=== PATIENT | male | born 1990 | race Caucasian/White ===

== ENCOUNTER 2017-08-07 17:03 | Emergency (ER) | payer OTHER ==
--- NOTE | 2017-08-07 17:23 | ERPHSYRPT ---
- History of Present Illness Time Seen by Provider: 08/07/17 17:13 Source: patient, family (mother) Physician History: CC: sore throat Hx: 2 day hx of severe sore throat. Feels hot and cold. No diff breathing. No abd pain. No V/D. Normal urination. Mild cough. Sees Dr Erin Mcclellan. Pain is aching and severe. Severity: severe ENT Location: throat Allergies/Adverse Reactions: No Known Drug Allergies Allergy (Verified 01/21/16 19:56) Home Medications: No Home Meds [No Home Meds] 1 ea UD 01/21/16 [History] Hx Tetanus, Diphtheria Vaccination/Date Given: Yes Hx Influenza Vaccination/Date Given: No Hx Pneumococcal Vaccination/Date Given: No - Review of Systems Constitutional: Fever, Chills, Malaise Eyes: No Symptoms Ears, Nose, & Throat: Throat Pain Respiratory: No Cough Abdominal/Gastrointestinal: No Nausea, No Vomiting, No Diarrhea Skin: No Rash Neurological: No Headache All Other Systems: Reviewed and Negative - Past Medical History Pertinent Past Medical History: No Neurological History: No Pertinent History ENT History: No Pertinent History Cardiac History: No Pertinent History Respiratory History: No Pertinent History Endocrine Medical History: No Pertinent History Musculoskeletal History: Arthritis, Fractures GI Medical History: No Pertinent History History: No Pertinent History Psycho-Social History: Depression Male Reproductive Disorders: No Pertinent History Other Medical History: I & D- pilonidal cyst. hx with depression/ bipolar - Past Surgical History Past Surgical History: Yes Neuro Surgical History: No Pertinent History Cardiac: No Pertinent History Respiratory: No Pertinent History Gastrointestinal: No Pertinent History Genitourinary: No Pertinent History Musculoskeletal: Orthopedic Surgery Male Surgical History: No Pertinent History Other Surgical History: left thumb - Social History Smoking Status: Current every day smoker How long have you smoked: 10 YEARS Exposure to second hand smoke: No Drug Use: none Patient Lives Alone: No - Nursing Vital Signs Nursing Vital Signs: Initial Vital Signs Temperature 98.7 F 08/07/17 17:09 Pulse Rate 80 08/07/17 17:09 Respiratory Rate 16 08/07/17 17:09 Blood Pressure 138/81 08/07/17 17:09 O2 Sat by Pulse Oximetry 96 08/07/17 17:09 Pain Scale Pain Intensity 8 - Physical Exam General Appearance: alert Eye Exam: bilateral eye: PERRL, EOMI Nasal Exam: normal inspection Throat Exam: dental tenderness (poor dentition), moist mucus membranes, tonsillar exudate, tonsillar swelling, No excessive drooling, No voice changes Neck Exam: normal inspection, non-tender, supple, lymphadenopathy (R), lymphadenopathy (L) Cardiovascular/Respiratory Exam: normal breath sounds, regular rate/rhythm Abdominal Exam: non-tender, soft, no organomegaly Neurologic Exam: alert, oriented x 3, cooperative, sensation nml, No motor deficits Skin Exam: warm, dry, No rash - Course Nursing assessment & vital signs reviewed: Yes Ordered Tests: Active Orders 24 hr Category Date Time Status STREP SCREEN-BETA A Stat Lab 08/07/17 17:30 Completed Medication Summary Discontinued Medications Generic Name Dose Route Start Last Admin Trade Name Victorino PRN Reason Stop Dose Admin Ibuprofen 600 mg 08/07/17 17:21 08/07/17 17:35 Motrin 600 Mg PO 08/07/17 17:22 600 mg STAT ONE Administration Ibuprofen Confirm 08/07/17 17:33 Motrin 600 Mg Administered 08/07/17 17:34 Dose 600 mg .ROUTE .[employer] ONE Lab/Rad Data: Laboratory Results 08/07/17 Range/Units 17:30 Streptococcus Screen POSITIVE (Negative) - Progress Progress Note: 08/07/17 17:43 The patient has positive strep. Rx PCN. Instr given. Counseled pt/family regarding: lab results, diagnosis, need for follow-up - Departure Time of Disposition: 17:44 Departure Disposition: Home Clinical Impression: Strep pharyngitis Condition: Stable Critical Care Time: No Referrals: ESAU MCCLELLAN [Primary Care Provider] - Instructions: Strep Throat (DC) Additional Instructions: SORE THROAT 1. If you are prescribed antibiotics, you should finish the entire prescription as directed. 2. Many sore throats are caused by viruses and antibiotics will not help. 3. Acetaminophen or Ibuprofen as directed for fever or discomfort. 4. Cool liquids may help the pain of sore throat. Rx PCN to [facility]. Prescriptions: Penicillin V Potassium 500 mg PO QID #40 tablet
[2017-08-07 17:31] VITALS: BP 138/81; PULSE 80; O2SAT 96
[2017-08-07] MEDS ORDERED: MOTRIN 600 MG ONE (17:33)
[2017-08-07] MEDS: MOTRIN 600 MG PO ONE (17:35)
== END 2017-08-07 18:15 | disposition home or self-care (01) ==
LOC: ED 17:03
DX: J02.0 Streptococcal pharyngitis (principal)
CPT/HCPCS: 87430; 99282; 99283; A9270-GY

== ENCOUNTER 2024-01-24 03:25 | Emergency (ER) | payer OTHER ==
[2024-01-24 03:41] VITALS: RESP 16; TEMP 98.4; O2SAT 99
--- NOTE | 2024-01-24 04:00 | ERPHSYRPT ---
- History of Present Illness Time Seen by Provider: 01/24/24 03:48 Source: patient Exam Limitations: no limitations Patient Subjective Stated Complaint: pt states bug bite to left leg Triage Nursing Assessment: pt ambulated into the er; pt is axo x4; c/o insect bite; pt states 7/10 pain to left upper leg; reddned area measures 12 cm x 12.5 cm; area is warm to the touch; pustule present to center of wound; no respiratory distress; vitals wnl Physician History: 33-year-old male presents to our ED for evaluation of infection to his left proximal thigh. Patient states symptoms started approximately 2 days ago. Symptoms started with a what appears to be an infected pustule. Patient states his significant other tried "popping it". The infection then got significantly worse relatively rapidly. No systemic manifestations. No inguinal pain or tenderness. Patient states he had similar infected pustules on his skin in the past that spontaneously resolved. No history of MRSA infection. Patient denies antibiotic allergies. Tetanus is up-to-date. Patient voices no other complaints or concerns at this time. Severity: moderate Modifying Factors: Improves With: nothing Associated Symptoms: denies symptoms Allergies/Adverse Reactions: No Known Drug Allergies Allergy (Verified 01/24/24 03:31) Hx Tetanus, Diphtheria Vaccination/Date Given: Yes Hx Influenza Vaccination/Date Given: Yes Hx Pneumococcal Vaccination/Date Given: No Travel Risk - International Travel Have you traveled outside of the country in past 3 weeks: No - Emerging Infectious Disease Are you exhibiting symptoms associated with any current EIDs: No - Review of Systems Constitutional: No Symptoms Eyes: No Symptoms Ears, Nose, & Throat: No Symptoms Respiratory: No Symptoms Cardiac: No Symptoms Abdominal/Gastrointestinal: No Symptoms Genitourinary Symptoms: No Symptoms Musculoskeletal: No Symptoms Skin: No Symptoms Neurological: No Symptoms Psychological: No Symptoms Endocrine: No Symptoms Hematologic/Lymphatic: No Symptoms Immunological/Allergic: No Symptoms - Past Medical History Pertinent Past Medical History: No Neurological History: No Pertinent History ENT History: No Pertinent History Cardiac History: No Pertinent History Respiratory History: No Pertinent History Endocrine Medical History: No Pertinent History Musculoskeletal History: Arthritis, Fractures GI Medical History: No Pertinent History History: No Pertinent History Psycho-Social History: Depression Male Reproductive Disorders: No Pertinent History Other Medical History: I & D- pilonidal cyst. hx with depression/ bipolar - Past Surgical History Past Surgical History: Yes Neuro Surgical History: No Pertinent History Cardiac: No Pertinent History Respiratory: No Pertinent History Gastrointestinal: No Pertinent History Genitourinary: No Pertinent History Musculoskeletal: Orthopedic Surgery Male Surgical History: No Pertinent History Other Surgical History: left thumb,left shoulder - Social History Smoking Status: Current every day smoker How long have you smoked: 10 YEARS Exposure to second hand smoke: Yes Drug Use: none Patient Lives Alone: No - Social Determinants of Health Will the patient participate in the screening: Yes Do you worry about a steady place to live?: Yes Do you have any problems with any of the following?: Other In the past 12 months,have you had to go without utilities?: Yes Transportation Issues: No Has anyone in your support network made you feel unsafe?: No Have you or anyone in your house had to go without enough: No - Nursing Vital Signs Nursing Vital Signs: Initial Vital Signs Temperature 98.4 F 01/24/24 03:31 Pulse Rate 84 01/24/24 03:31 Respiratory Rate 16 01/24/24 03:31 Blood Pressure 132/91 01/24/24 03:31 O2 Sat by Pulse Oximetry 99 01/24/24 03:31 Pain Scale Pain Intensity 7 - Physical Exam General Appearance: no apparent distress, alert Eye Exam: PERRL/EOMI, eyes nml inspection Ears, Nose, Throat Exam: normal ENT inspection, moist mucous membranes Neck Exam: normal inspection, full range of motion Respiratory Exam: normal breath sounds, lungs clear, airway intact, No respiratory distress Cardiovascular Exam: regular rate/rhythm, normal heart sounds, normal peripheral pulses Gastrointestinal/Abdomen Exam: soft, normal bowel sounds, No tenderness, No mass Back Exam: normal inspection, normal range of motion, No CVA tenderness, No vertebral tenderness Extremity Exam: normal inspection, normal range of motion, pelvis stable, tenderness (Some tenderness at the site of the cellulitis. No fluctuance), other (Area of cellulitis measuring 12 x 12 cm. The area at the center is indurated and measures 4 x 4 cm. At the very center there is a small necrotic pustular. This Was deroofed. No purulent material expressed. Small amount of serosanguineous material expressed less than 1 cc.) Neurologic Exam: alert, oriented x 3, cooperative, normal mood/affect, nml cerebellar function, nml station & gait, sensation nml, No motor deficits Skin Exam: normal color, warm, dry, No rash Lymphatic Exam: No adenopathy SpO2 Interpretation: normal SpO2: 99 O2 Delivery: Room Air - Course Nursing assessment & vital signs reviewed: Yes Ordered Tests: Active Orders 24 hr Category Date Time Status ACO SDOH Referral ONCE Cons 01/24/24 03:41 Active Medication Summary Discontinued Medications Generic Name Dose Route Start Last Admin Trade Name Victorino PRN Reason Stop Dose Admin Ceftriaxone Sodium 1,000 mg 01/24/24 04:03 01/24/24 04:07 Ceftriaxone Sodium 1000 Mg Inj Vial IM 01/24/24 04:04 1,000 mg STAT ONE Administration Ceftriaxone Sodium Confirm 01/24/24 04:06 Ceftriaxone Sodium 1000 Mg Inj Vial Administered 01/24/24 04:07 Dose 1,000 mg .ROUTE .STK-MED ONE Clindamycin Phosphate 600 mg 01/24/24 04:00 01/24/24 04:07 Clindamycin Phosphate 600 Mg/4 Ml Vial IV 01/24/24 04:01 Not Given STAT ONE Clindamycin Phosphate 600 mg 01/24/24 04:06 01/24/24 04:08 Clindamycin Phosphate 600 Mg/4 Ml Vial IM 01/24/24 04:07 600 mg STAT ONE Administration Clindamycin Phosphate Confirm 01/24/24 04:06 Clindamycin Phosphate 600 Mg/4 Ml Vial Administered 01/24/24 04:07 Dose 600 mg .ROUTE .STK-MED ONE Lidocaine HCl Confirm 01/24/24 04:06 Lidocaine Hcl 1% 20 Ml Mdv 20 Ml Ml Administered 01/24/24 04:07 Dose 3 ml .ROUTE .STK-MED ONE - Progress Progress: improved Progress Note: 33-year-old male presents to our ED for evaluation of cellulitis to his left thigh. There is an area of induration there as well. Physical exam negative for lymphadenopathy. No lymphangitis. The center of the wound had a small necrotic area of tissue measuring approximately 2 mm located at the very center of the infection. Using an 11 blade this was deroofed. No purulent drainage obtained. Small amount of blood. The area was cleaned with alcohol and dressed with a Band-Aid. There was no area of fluctuance for drainage. The area immediately adjacent to the pustule where the infection initiated was indurated. The area of cellulitis spread over an area of 12 x 12 cm. No circumferential involvement. The involved extremity was neurovascular tact distally compartments are soft cap refill less than 2 seconds. Patient refused intravenous antibiotics. He was only agreeable to IM antibiotics. Patient declined pain medication. We discussed the need for admission. Patient declined. Patient understands that he would receive IV antibiotics during his admission for potentially quicker resolution and monitoring. He declined but agreed to return to our ED tomorrow in 24 hours for reassessment. A prescription for Keflex and clindamycin was forwarded to patient's pharmacy. Patient significant other at the bedside stated that they are homeless. However they do have the means to pay for their antibiotics. Patient voiced no other concerns patient was discharged home with an agreement to return for reassessment. ACO referral made secondary to his homeless status. Portions of this note were created with voice recognition technology. There may be grammatical, spelling, punctuation or sound alike errors Complexity problem addressed is moderate acute complicated. No critical care time. Complexity of data reviewed is low. No specialized testing ordered. Diagnosis made based on history and physical exam. Risk of complication and or risk of morbidity/mortality patient management is moderate. A prescription for clindamycin and Keflex forwarded to patient's pharmacy. Vital stable. Time spent to discharge patient is approximately 15 minutes. Plan of care established for shared decision making. No social determinants of health present impede follow-up. Portions of this note were created with voice recognition technology. There may be grammatical, spelling, punctuation or sound alike errors 01/24/24 04:33 01/24/24 04:38 Counseled pt/family regarding: diagnosis, need for follow-up - Departure Departure Disposition: Home Clinical Impression: Cellulitis, Induration of skin Condition: Stable Critical Care Time: No Referrals: DOCTOR,NO FAMILY [Primary Care Provider] - Follow up/PCP as directed Instructions: Cellulitis (Skin Infection), Adult ED Additional Instructions: Please return tomorrow morning 01/25/24 for a check up of your infection Discharge/Care Plan SHANETONNY EASTON was seen on 01/24/24 in the Emergency Room. The patient was counseled regarding Diagnosis,Lab results, Imaging studies, need for follow up and when to return to the Emergency Room. Prescriptions given: Discharge Note I have spoken with the patient and/or caregivers. I have explained the patient's condition, diagnosis and treatment plan based on the information available to me at this time. I have answered the patient's and/or caregiver's questions and addressed any concerns. The patient and/or caregivers have as good understanding of the patient's diagnosis, condition and treatment plan as can be expected at this point. The vital signs have been stable. The patient's condition is stable and appropriate for discharge from the emergency department. The patient will pursue further outpatient evaluation with the primary care physician or other designated or consulting physician as outlined in the discharge instructions. The patient and/or caregivers are agreeable to this plan of care and follow-up instructions have been explained in detail. The patient and/or caregivers have received these instruction. The patient/and or caregivers are aware that any significant change in condition or worsening of symptoms should prompt an immediate return to this or the closest emergency department or call 911. Prescriptions: Clindamycin HCl 150 mg [Cleocin 150 mg Capsule] 2 cap PO QID 7 Days #56 cap Cephalexin Mh 500 mg [Keflex 500 mg] 500 mg PO TID 7 Days #21 cap
[2024-01-24] MEDS ORDERED: Rocephin 1000 MG INJ ONE (04:06)
[2024-01-24] MEDS ORDERED: XYLOCAINE 1% HCL 20 ML MDV ONE (04:06)
[2024-01-24] MEDS ORDERED: Cleocin Phosphate IV 600 MG/4 ML ONE (04:06)
[2024-01-24] MEDS: Rocephin 1000 MG INJ IM ONE (04:07)
[2024-01-24] MEDS: Cleocin Phosphate IV 600 MG/4 ML IV ONE (04:07)
[2024-01-24] MEDS: Cleocin Phosphate IV 600 MG/4 ML IM ONE (04:08)
[2024-01-24 04:24] VITALS: BP 129/91; PULSE 88
== END 2024-01-24 04:28 | disposition home or self-care (01) ==
LOC: ED 03:25
DX: L03.116 Cellulitis of left lower limb (principal); R23.4 Changes in skin texture; Z72.0 Tobacco use; Z59.12 Inadequate housing utilities; Z59.819 Housing instability, housed unspecified
CPT/HCPCS: 96372; 99283; J0696

== ENCOUNTER 2024-01-24 22:56 | Observation (INO) | payer OTHER ==
--- NOTE | 2024-01-25 00:05 | ERPHSYRPT ---
- History of Present Illness Time Seen by Provider: 01/24/24 23:07 Source: patient Exam Limitations: no limitations Patient Subjective Stated Complaint: pt states that leg is worse than yesterday Triage Nursing Assessment: pt ambulated into the er; pt is axo x4; c/o insect bite; pt states 10/10 pain to left upper left; area is dark red, hot to the touch, drainage present; no respiratory distress present; vitals Physician History: 33-year-old male presented to the ER with complaint of left lower anterior thigh swelling and pain with discharge. Patient reports he possibly had insect bite 4 days ago, was evaluated yesterday in the ER, got a shot of Rocephin and clindamycin, was recommended admission but patient wanted to leave. He has not picked up his home prescription, now presented with increasing pain and swelling especially in the center with some discharge. Reports subjective feeling of fever and chills. No history of MRSA. Allergies/Adverse Reactions: No Known Drug Allergies Allergy (Verified 01/24/24 23:09) Hx Tetanus, Diphtheria Vaccination/Date Given: Yes Hx Influenza Vaccination/Date Given: Yes Hx Pneumococcal Vaccination/Date Given: No Immunizations Up to Date: No Travel Risk - International Travel Have you traveled outside of the country in past 3 weeks: No - Emerging Infectious Disease Are you exhibiting symptoms associated with any current EIDs: No - Review of Systems Constitutional: Fever, Chills Eyes: No Symptoms Ears, Nose, & Throat: No Symptoms Respiratory: No Symptoms Cardiac: No Symptoms Abdominal/Gastrointestinal: No Symptoms Genitourinary Symptoms: No Symptoms Skin: Cellulitis, Skin Lesions Neurological: No Symptoms Endocrine: No Symptoms Hematologic/Lymphatic: No Symptoms - Past Medical History Pertinent Past Medical History: No Neurological History: No Pertinent History ENT History: No Pertinent History Cardiac History: No Pertinent History Respiratory History: No Pertinent History Endocrine Medical History: No Pertinent History Musculoskeletal History: Arthritis, Fractures GI Medical History: No Pertinent History History: No Pertinent History Psycho-Social History: Depression Male Reproductive Disorders: No Pertinent History Other Medical History: I & D- pilonidal cyst. hx with depression/ bipolar - Past Surgical History Past Surgical History: Yes Neuro Surgical History: No Pertinent History Cardiac: No Pertinent History Respiratory: No Pertinent History Gastrointestinal: No Pertinent History Genitourinary: No Pertinent History Musculoskeletal: Orthopedic Surgery Male Surgical History: No Pertinent History Other Surgical History: left thumb,left shoulder - Social History Smoking Status: Current every day smoker How long have you smoked: 10 YEARS Exposure to second hand smoke: Yes Drug Use: none Patient Lives Alone: No - Social Determinants of Health Will the patient participate in the screening: Yes Do you worry about a steady place to live?: Yes Do you have any problems with any of the following?: No known problems In the past 12 months,have you had to go without utilities?: Yes Transportation Issues: No Has anyone in your support network made you feel unsafe?: No Have you or anyone in your house had to go without enough: No - Nursing Vital Signs Nursing Vital Signs: Initial Vital Signs Temperature 98.8 F 01/24/24 23:10 Pulse Rate 97 H 01/24/24 23:10 Respiratory Rate 18 01/24/24 23:10 Blood Pressure 117/90 01/24/24 23:10 O2 Sat by Pulse Oximetry 98 01/24/24 23:10 Pain Scale Pain Intensity 10 - Physical Exam General Appearance: no apparent distress Eye Exam: PERRL/EOMI Neck Exam: normal inspection, full range of motion Respiratory Exam: normal breath sounds, lungs clear Cardiovascular Exam: regular rate/rhythm, normal heart sounds Gastrointestinal/Abdomen Exam: soft Back Exam: normal inspection, normal range of motion Extremity Exam: inflammation (Left lower anterior thigh 10 x 10 cm area of swelling with central area of blackening and yellow-green discharge. Remarkable tenderness around.), swelling, tenderness Neurologic Exam: alert, oriented x 3, cooperative Skin Exam: normal color SpO2 Interpretation: normal SpO2: 98 O2 Delivery: Room Air Ordered Tests: Medication Summary Discontinued Medications Generic Name Dose Route Start Last Admin Trade Name Freq PRN Reason Stop Dose Admin Acetaminophen 1,000 mg 01/25/24 03:14 Acetaminophen 500 Mg Tablet PO 02/24/24 03:13 Q4H PRN PRN FEVER Hydrocodone Bitart/Acetaminophen 1 tab 01/26/24 12:29 Hydrocodone/Apap 5/325 1 Tab Tablet PO 01/31/24 12:28 Q4HPRN PRN PAIN Albuterol Sulfate Confirm 01/26/24 11:02 Proair Hfa Mdi 8.5 Gm Administered 01/26/24 11:03 Dose 8.5 gm IH .STK-MED ONE Albuterol/Ipratropium 3 ml 01/25/24 13:00 01/26/24 08:13 Ipratropium/Albuterol Sulfate 3 Ml Ampul.Neb IH 02/24/24 12:59 Not Given Q6HRT BONILLA Bupivacaine HCl Confirm 01/26/24 09:31 Bupivacaine Hcl 2.5 Mg/Ml 10 Ml Administered 01/26/24 09:32 Dose 10 ml .ROUTE .STK-MED ONE Daptomycin 500 mg 01/27/24 10:00 Daptomycin 500 Mg IV 02/26/24 09:59 DAILY BONILLA Device 1 01/26/24 13:30 01/26/24 15:44 Therapuetic Drug Level Monitor Each IJ 01/26/24 13:31 Not Given 1XONLY ONE Fentanyl Citrate Confirm 01/26/24 10:38 Fentanyl Citrate 100 Mcg/2 Ml* Vial Administered 01/26/24 10:39 Dose 100 mcg .ROUTE .STK-MED ONE Hydromorphone HCl Confirm 01/26/24 11:07 Hydromorphone 2mg Injection Administered 01/26/24 11:08 Dose 2 mg .ROUTE .STK-MED ONE Piperacillin Sod/Tazobactam 100 mls @ 200 mls/hr 01/25/24 00:05 01/25/24 00:20 Sod 3.375 gm/ Sodium Chloride IV 01/25/24 00:34 200 mls/hr STAT ONE Administration Clindamycin HCl/Dextrose 900 mg in 50 mls @ 100 mls/hr 01/25/24 00:05 01/25/24 00:21 Clindamycin-D5w 900 Mg/50 Ml IV 01/25/24 00:34 100 mls/hr STAT STA 100 mls/hr Administration Sodium Chloride Confirm 01/25/24 00:20 Sodium Chloride 100ml Mini-Bag Plus Administered 01/25/24 00:21 Dose 100 mls @ ud IV .STK-MED ONE Clindamycin HCl/Dextrose Confirm 01/25/24 00:20 Clindamycin-D5w 900 Mg/50 Ml Administered 01/25/24 00:21 Dose 900 mg in 50 mls @ ud IV .STK-MED ONE Vancomycin HCl 1 gm in 200 mls @ 125 mls/hr 01/25/24 03:15 01/25/24 04:47 Vancomycin 1 Gram/200 Ml Bag IV 02/24/24 03:14 125 mls/hr Q12H BONILLA Administration Piperacillin Sod/Tazobactam 100 mls @ 200 mls/hr 01/25/24 06:00 01/26/24 12:40 Sod 3.375 gm/ Sodium Chloride IV 01/28/24 05:59 200 mls/hr Q6HT BONILLA Administration Sodium Chloride 1,000 mls @ 125 mls/hr 01/25/24 01:20 01/26/24 12:53 Sodium Chloride 0.9% 1000 Ml IV 02/24/24 01:19 Not Given .Q8H BONILLA Vancomycin HCl 1.5 gm in 300 mls @ 200 mls/hr 01/25/24 14:00 01/26/24 15:46 Vancomycin 1.5 Gram/300 Ml Bag IV 02/24/24 13:59 Not Given Q8HT BONILLA Sodium Chloride Confirm 01/25/24 03:46 Sodium Chloride 0.9% 1000 Ml Administered 01/25/24 03:47 Dose 1,000 mls @ ud .ROUTE .STK-MED ONE Vancomycin HCl Confirm 01/25/24 04:45 Vancomycin 1 Gram/200 Ml Bag Administered 01/25/24 04:46 Dose 1 gm in 200 mls @ ud IV .STK-MED ONE Sodium Chloride Confirm 01/25/24 06:15 Sodium Chloride 100ml Mini-Bag Plus Administered 01/25/24 06:16 Dose 100 mls @ ud IV .STK-MED ONE Lactated Ringer's 1,000 mls @ 50 mls/hr 01/26/24 13:00 01/26/24 13:05 Lactated Ringers IV 02/25/24 12:59 Not Given .Q20H BONILLA Daptomycin 600 mg/ Sodium 12 mls @ 5 mls/min 01/26/24 16:00 Chloride IV 02/25/24 15:59 Q24H BONILLA Ibuprofen 800 mg 01/25/24 07:04 01/25/24 11:19 Ibuprofen 400 Mg Tablet PO 02/24/24 07:03 800 mg TIDP PRN Administration MILD TO MODERATE PAIN Ketorolac Tromethamine Confirm 01/25/24 00:43 Ketorolac Tromethamine 30 Mg/Ml Inj Administered 01/25/24 00:44 Dose 30 mg .ROUTE .STK-MED ONE Ketorolac Tromethamine Confirm 01/26/24 11:13 Ketorolac Tromethamine 30 Mg/Ml Inj Administered 01/26/24 11:14 Dose 30 mg .ROUTE .STK-MED ONE Lidocaine HCl Confirm 01/26/24 10:51 Lidocaine - Mpf 2% 5 Ml Vial Administered 01/26/24 10:52 Dose 5 ml .ROUTE .STK-MED ONE Midazolam HCl Confirm 01/26/24 10:38 Midazolam Hcl 2 Mg/2 Ml Vial Administered 01/26/24 10:39 Dose 2 mg .ROUTE .STK-MED ONE Morphine Sulfate 4 mg 01/25/24 01:20 Morphine Sulfate 4 Mg/Ml Injection IV 01/30/24 01:19 Q6H PRN PRN PAIN Nicotine 21 mg 01/25/24 18:15 01/25/24 18:09 Nicotine 21 Mg/Patch Patch TOP 02/24/24 18:14 21 mg Q24H BONILLA Administration Nicotine 21 mg 01/26/24 15:00 01/26/24 15:02 Nicotine 21 Mg/Patch Patch TOP 02/25/24 14:59 21 mg Q24H BONILLA Administration Ondansetron HCl 4 mg 01/25/24 01:20 Ondansetron Hcl 4 Mg/2 Ml Vial IV 02/24/24 01:19 Q6H PRN PRN NAUSEA/VOMITING Piperacillin Sod/Tazobactam Sod Confirm 01/25/24 00:20 Piperacillin/Tazobactam Sodium 3.375 Gm Vial Administered 01/25/24 00:21 Dose 3.375 gm IV .STK-MED ONE Piperacillin Sod/Tazobactam Sod Confirm 01/25/24 06:14 Piperacillin/Tazobactam Sodium 3.375 Gm Vial Administered 01/25/24 06:15 Dose 3.375 gm IV .STK-MED ONE Propofol Confirm 01/26/24 10:38 Propofol 10 Mg/Ml 20ml Vial Administered 01/26/24 10:39 Dose 200 mg IV .STK-MED ONE Succinylcholine Chloride Confirm 01/26/24 10:37 Succinylcholine Chloride 200mg/10 Ml Vial Administered 01/26/24 10:38 Dose 200 mg .ROUTE .STK-MED ONE Sugammadex Sodium Confirm 01/26/24 11:08 Sugammadex Sodium 200 Mg/2 Ml Vial Administered 01/26/24 11:09 Dose 200 mg IV .STK-MED ONE Lab/Rad Data: Laboratory Result Diagrams 01/25/24 00:20 01/25/24 00:20 Laboratory Results 01/25/24 01/25/24 01/25/24 Range/Units 00:20 00:20 00:20 WBC 8.5 (4.23-9.07) x10^3/uL RBC 4.49 L (4.63-6.08) x10^6/uL Hgb 13.5 L (13.7-17.5) g/dL Hct 40.7 (40.1-51.0) % MCV 90.6 (79.0-92.2) fL MCH 30.1 (25.7-32.2) pg MCHC 33.2 (32.3-36.5) g/dL RDW 14.6 H (11.6-14.4) % Plt Count 209 (163-337) x10^3/uL MPV 9.6 (9.4-12.4) fL Gran % 72.5 H (34.0-67.9) % Immature Gran % (Auto) 0.2 (0.001-0.429) % Nucleat RBC Rel Count 0.0 (0.00-0.2) % Eos # (Auto) 0.19 (0.04-0.54) x10^3/uL Immature Gran # (Auto) 0.02 (0.001-0.031) x10^3u/L Absolute Lymphs (auto) 1.49 (1.32-3.57) x10^3/uL Absolute Monos (auto) 0.59 (0.30-0.82) x10^3/uL Absolute Nucleated RBC 0.00 (0.00-0.012) x10^3u/L Lymphocytes % 17.6 L (21.8-53.1) % Monocytes % 7.0 (5.3-12.2) % Eosinophils % 2.2 (0.8-7.0) % Basophils % 0.5 (0.2-1.2) % Absolute Granulocytes 6.14 H (1.78-5.38) x10^3/uL Basophils # 0.04 (0.01-0.08) x10^3/uL Sodium 137 (135-145) mmol/L Potassium 3.6 (3.5-5.1) mmol/L Chloride 103 (98-107) mmol/L Carbon Dioxide 27 (22-30) mmol/L Anion Gap 10.6 (5-15) MEQ/L BUN 15 (9-20) mg/dL Creatinine 0.73 (0.66-1.25) mg/dL Estimated GFR 124.7 ML/MIN Glucose 113 H (74-106) mg/dL Lactic Acid (0.4-2.0) Calcium 8.9 (8.4-10.2) mg/dL Total Bilirubin 0.40 (0.2-1.3) mg/dL AST 38 (17-59) U/L ALT 30 (0-50) U/L Alkaline Phosphatase 65 (38-126) U/L Creatine Kinase 532 H (55-170) U/L Serum Total Protein 7.2 (6.3-8.2) g/dL Albumin 4.0 (3.5-5.0) g/dL 01/25/24 Range/Units 00:05 WBC (4.23-9.07) x10^3/uL RBC (4.63-6.08) x10^6/uL Hgb (13.7-17.5) g/dL Hct (40.1-51.0) % MCV (79.0-92.2) fL MCH (25.7-32.2) pg MCHC (32.3-36.5) g/dL RDW (11.6-14.4) % Plt Count (163-337) x10^3/uL MPV (9.4-12.4) fL Gran % (34.0-67.9) % Immature Gran % (Auto) (0.001-0.429) % Nucleat RBC Rel Count (0.00-0.2) % Eos # (Auto) (0.04-0.54) x10^3/uL Immature Gran # (Auto) (0.001-0.031) x10^3u/L Absolute Lymphs (auto) (1.32-3.57) x10^3/uL Absolute Monos (auto) (0.30-0.82) x10^3/uL Absolute Nucleated RBC (0.00-0.012) x10^3u/L Lymphocytes % (21.8-53.1) % Monocytes % (5.3-12.2) % Eosinophils % (0.8-7.0) % Basophils % (0.2-1.2) % Absolute Granulocytes (1.78-5.38) x10^3/uL Basophils # (0.01-0.08) x10^3/uL Sodium (135-145) mmol/L Potassium (3.5-5.1) mmol/L Chloride (98-107) mmol/L Carbon Dioxide (22-30) mmol/L Anion Gap (5-15) MEQ/L BUN (9-20) mg/dL Creatinine (0.66-1.25) mg/dL Estimated GFR ML/MIN Glucose (74-106) mg/dL Lactic Acid 0.8 (0.4-2.0) Calcium (8.4-10.2) mg/dL Total Bilirubin (0.2-1.3) mg/dL AST (17-59) U/L ALT (0-50) U/L Alkaline Phosphatase (38-126) U/L Creatine Kinase (55-170) U/L Serum Total Protein (6.3-8.2) g/dL Albumin (3.5-5.0) g/dL - Progress Progress: unchanged Progress Note: 01/25/24 01:12 Patient has left lower anterior insect bite with cellulitis and draining abscess. He started on IV antibiotics Zosyn and clindamycin. Workup showed normal white count, fairly unremarkable chemistries and CK of 530s. Normal lactate. I do not think patient has necrotizing fasciitis but more of a boil/abscess. I believe patient needs I&D under anesthesia. Discussed with Dr. Dillard, reviewed history, workup and agreed with admission. I have discussed the results of workup and plan of admission with patient and family who understand and agree. Patient admission is done during [facility] downtime and this documentation is done later. Discussed with : Carol Will see patient in: hospital (observation) Counseled pt/family regarding: lab results, diagnosis Medical Desision Making - Independent Historian Additional History obtained from: Spouse - Discussion of managment Care discussed with:: hospitalist Reviewed:: Test results Agreed on:: Treatment plan, place in obs Will see patient: in hospital - Diagnostic Testing Diagnostic test were ordered, analyzed, and reviewed by me: Yes - Risk of complications The pt has a mod risk of morbidity or mortality based on: Need for prescription drug management, Need for minor surgical intervention in patient with know risk factors The pt has a high risk of morbidity or mortality based on: Decision regarding hospitilization or escalation of hosp level of care - Departure Departure Disposition: Observation Clinical Impression: Thigh abscess, Cellulitis Condition: Stable Critical Care Time: No
[2024-01-25] MEDS: PIPERACILLIN/TAZOBACTAM 3.375 GM in Sodium Chloride 100ML MINI-BAG PLUS 100 ML IV ONE (00:20)
[2024-01-25] MEDS ORDERED: Sodium Chloride 100ML MINI-BAG PLUS 100 ML IV ONE ×2 (00:20→06:15)
[2024-01-25] MEDS ORDERED: CLINDAMYCIN-D5W 900 MG/50 ML*** 900 MG/50 ML BAG IV ONE (00:20)
[2024-01-25] MEDS ORDERED: PIPERACILLIN/TAZOBACTAM IV ONE ×2 (00:20→06:14)
[2024-01-25] MEDS: CLINDAMYCIN-D5W 900 MG/50 ML*** 900 MG/50 ML BAG IV STA (00:21)
[2024-01-25 00:27] LABS: Absolute Neutrophil Ct (ANC) 6.14 x10^3/uL (1.78-5.38); BASOPHIL % 0.5 % (0.2-1.2); Basophil (Absolute #) 0.04 x10^3/uL (0.01-0.08); Eosinophil % 2.2 % (0.8-7.0); Eosinophil (Absolute #) 0.19 x10^3/uL (0.04-0.54); Hematocrit 40.7 % (40.1-51.0); Hemoglobin 13.5 g/dL (13.7-17.5); IMMATURE GRAN # 0.02 x10^3u/L (0.001-0.031); IMMATURE GRAN % 0.2 % (0.001-0.429); Lymphocyte (Absolute #) 1.49 x10^3/uL (1.32-3.57); Lymphocytes % 17.6 % (21.8-53.1); Mean Cell Volume 90.6 fL (79.0-92.2); Mean Corpuscular Hemoglobin 30.1 pg (25.7-32.2); Mean Corpuscular Hgb Concent. 33.2 g/dL (32.3-36.5); Mean Platelet Volume 9.6 fL (9.4-12.4); Monocyte (Absolute #) 0.59 x10^3/uL (0.30-0.82); Neutrophil % 72.5 % (34.0-67.9); Platelet Count 209 x10^3/uL (163-337); Red Blood Count 4.49 x10^6/uL (4.63-6.08); Red Cell Distribution Width 14.6 % (11.6-14.4); White Blood Count 8.5 x10^3/uL (4.23-9.07)
[2024-01-25] MEDS ORDERED: TORAdol 30 mg Injection ONE (00:43)
[2024-01-25] MEDS ORDERED: MORPHINE SULFATE 4 MG INJ IV PRN (01:20)
[2024-01-25] MEDS ORDERED: Zofran 4 MG/2 ML VIAL IV PRN (01:20)
[2024-01-25] MEDS ORDERED: TYLENOL EXTRA STRENGTH 500 MG PO PRN (03:14)
[2024-01-25] MEDS ORDERED: MOTRIN 600 MG PO PRN (03:15)
--- NOTE | 2024-01-25 03:25 | PCM.HP ---
History of Present Illness - Chief Complaint Date: 01/25/24 History of Present Illness: Mr. Miller is a 33 year-old gentleman with active tobacco abuse and dependence and prior polysubstance abuse (IV cocaine and methaphetamines) who presents with cellulitis. He admits to a spider bite on his left thigh three days ago which led to a pimple and then a boil with surrounding erythema. He came to [facility] ED last night but left AMA with prescriptions to fill which he was not able to fill. Upon arrival today, his laboratory data was unrevealing, and his left thigh has extensive erythema and induration with a large boil in the center which has been drained several times. He currently denies any fevers, chills, nausea, vomiting, diarrhea, syncope, presyncope, visual changes, orthopnea, PND, odynophagia, dysphagia, chest pain, shortness of breath, belly pain, dysuria, hematuria, melena, hematochezia, or neurological changes. All other systems were reviewed and were negative. - Review of Systems Constitutional: No Fever, No Chills Eyes: No Symptoms Ears, Nose, & Throat: No Symptoms Respiratory: No Cough, No Short Of Breath Cardiac: No Chest Pain, No Edema, No Syncope Abdominal/Gastrointestinal: No Abdominal Pain, No Nausea, No Vomiting, No Diarrhea Genitourinary Symptoms: No Dysuria Musculoskeletal: No Back Pain, No Neck Pain Skin: Cellulitis, Rash Neurological: No Dizziness, No Focal Weakness, No Sensory Changes Psychological: No Symptoms Endocrine: No Symptoms Hematologic/Lymphatic: No Symptoms Immunological/Allergic: No Symptoms Medications & Allergies Home Medications: Home Medication List Cephalexin Mh 500 mg [Keflex 500 mg] 500 mg PO TID 7 Days #21 cap 01/24/24 [Rx Confirmed 01/24/24] Clindamycin HCl 150 mg [Cleocin 150 mg Capsule] 2 cap PO QID 7 Days #56 cap 01/24/24 [Rx Confirmed 01/24/24] Allergies/Adverse Reactions: Allergies Allergy/AdvReac Type Severity Reaction Status Date / Time No Known Drug Allergies Allergy Verified 01/24/24 23:09 - Past Medical History Past Medical History: No Neurological History: No Pertinent History ENT History: No Pertinent History Cardiac History: No Pertinent History Respiratory History: No Pertinent History Endocrine Medical History: No Pertinent History Musculoskelatal History: Arthritis, Fractures GI Medical History: No Pertinent History History: No Pertinent History Pyscho-Social History: Depression Male Reproductive Disorders: No Pertinent History Comment: I & D- pilonidal cyst. hx with depression/ bipolar - Past Surgical History Past Surgical History: Yes Neuro Surgical History: No Pertinent History Cardiac History: No Pertinent History Respiratory Surgery: No Pertinent History GI Surgical History: No Pertinent History Genitourinary Surgical Hx: No Pertinent History Musculskeletal Surgical Hx: Orthopedic Surgery Male Surgical History: No Pertinent History Other Surgical History: left thumb,left shoulder Significant Family History: no pertinent family hx - Social History Smoking Status: Current every day smoker How long have you smoked: 10 YEARS Exposure to second hand smoke: Yes Alcohol: None Drug Use: none - Social Determinants of Health Will the patient participate in the screening: Yes Do you worry about a steady place to live?: Yes Do you have any problems with any of the following?: No known problems In the past 12 months,have you had to go without utilities?: Yes Have you or anyone in your house had to go without enough: No Transportation Issues: No Has anyone in your support network made you feel unsafe?: No - Physical Exam Vital Signs: Vital Signs - 24 hr Temp Pulse Resp BP BP Pulse Ox 01/25/24 00:30 98 H 126/77 98 01/25/24 00:12 98 01/25/24 00:00 96 H 121/85 98 01/24/24 23:30 97 H 119/80 98 01/24/24 23:10 98.8 F 95 H 18 117/90 117/90 99 General Appearance: no apparent distress, alert Neurologic Exam: alert, oriented x 3, cooperative, normal mood/affect, nml cerebellar function, nml station & gait, sensation nml, No motor deficits Eye Exam: PERRL/EOMI, eyes nml inspection Ears, Nose, Throat Exam: normal ENT inspection, TMs normal, pharynx normal, moist mucous membranes Neck Exam: normal inspection, non-tender, supple, full range of motion Respiratory Exam: normal breath sounds, lungs clear, No respiratory distress Cardiovascular Exam: regular rate/rhythm, normal heart sounds, normal peripheral pulses Gastrointestinal/Abdomen Exam: soft, normal bowel sounds, No tenderness, No mass Back Exam: normal inspection, normal range of motion, No CVA tenderness, No vertebral tenderness Extremity Exam: normal inspection, normal range of motion, pelvis stable Skin Exam: other (ERYTHEMA, INDURATION, DRAINING BOIL ON LEFT THIGH) Lymphatic Exam: No adenopathy Results - Labs Lab/Micro Results: Lab Results-Last 24 Hours 01/25/24 01/25/24 Range/Units 00:05 00:20 WBC 8.5 (4.23-9.07) x10^3/uL RBC 4.49 L (4.63-6.08) x10^6/uL Hgb 13.5 L (13.7-17.5) g/dL Hct 40.7 (40.1-51.0) % MCV 90.6 (79.0-92.2) fL MCH 30.1 (25.7-32.2) pg MCHC 33.2 (32.3-36.5) g/dL RDW 14.6 H (11.6-14.4) % Plt Count 209 (163-337) x10^3/uL MPV 9.6 (9.4-12.4) fL Gran % 72.5 H (34.0-67.9) % Immature Gran % (Auto) 0.2 (0.001-0.429) % Nucleat RBC Rel Count 0.0 (0.00-0.2) % Eos # (Auto) 0.19 (0.04-0.54) x10^3/uL Immature Gran # (Auto) 0.02 (0.001-0.031) x10^3u/L Absolute Lymphs (auto) 1.49 (1.32-3.57) x10^3/uL Absolute Monos (auto) 0.59 (0.30-0.82) x10^3/uL Absolute Nucleated RBC 0.00 (0.00-0.012) x10^3u/L Lymphocytes % 17.6 L (21.8-53.1) % Monocytes % 7.0 (5.3-12.2) % Eosinophils % 2.2 (0.8-7.0) % Basophils % 0.5 (0.2-1.2) % Absolute Granulocytes 6.14 H (1.78-5.38) x10^3/uL Basophils # 0.04 (0.01-0.08) x10^3/uL Lactic Acid 0.8 (0.4-2.0) - Radiology Impressions Radiology Exams & Impressions: Radiology Procedures Category Date Time Status LOWER EXTREMITY WO CONTRAST [CT] Urgent Exams 01/25/24 03:13 Ordered Assessment/Plan (1) Cellulitis Current Visit: No Status: Acute Assessment & Plan: ANTIBIOTICS AND STEROIDS Vancomycin Zosyn ASSESSMENT 1. Cellulitis 2. Draining Wound 3. Polysubstance Abuse Present and Past PLAN 1. Start Vancomycin and Zosyn 2. Wound and Blood cultures pending 3. CT Scan Non-Contrasted of Left Lower Extremity 4. Wound care consultation 5. Smoking cessation counseled SCDs The entirety of this encounter was done via telemedicine with audio and visual. Consent was obtained for a telemedicine encounter. Janes Dillard MD Pulmonary and Critical Care Medicine Code(s): L03.90 - CELLULITIS, UNSPECIFIED Telemedicine Encounter - Telemedicine Encounter Telemedicine Encounter: "The entirety of this encounter was performed via Telemedicine" This visit was performed using real-time audio and video connection between my location and thepatients locationwith the assistance of a surrogateat the patients location. Written or verbal consent was obtained from the patient/guardian to perform this visit [email or web address] technology. Any patient questions regarding the telemedicine interaction were answered.
[2024-01-25 03:27] LABS: BILIRUBIN,TOTAL 0.4 mg/dL (0.2-1.3); Calcium 8.9 mg/dL (8.4-10.2); Creatinine 1 0.73 mg/dL (0.66-1.25); EST GLOMERULAR FILTRATION RATE 124.7 ML/MIN; Potassium 3.6 mmol/L (3.5-5.1); Total Protein 7.2 g/dL (6.3-8.2)
[2024-01-25 03:28] LABS: ANION GAP 10.6 MEQ/L (5-15)
[2024-01-25] MEDS ORDERED: Sodium Chloride 0.9% 1000 ML 1,000 ML ONE (03:46)
[2024-01-25] MEDS: Sodium Chloride 0.9% 1000 ML 1,000 ML IV SCH (03:57)
[2024-01-25] MEDS ORDERED: VANCOMYCIN 1 GRAM/200 ML BAG 1 GM/200 ML PIGGYBACK IV ONE (04:45)
[2024-01-25] MEDS: VANCOMYCIN 1 GRAM/200 ML BAG 1 GM/200 ML PIGGYBACK IV SCH (04:47)
--- NOTE | 2024-01-25 04:52 | XRAY ---
CLINICAL HISTORY: cellulitis COMPARISON: None. TECHNIQUE: Spiral axial continuous cuts were taken through the left femur and knee joint with multiplanar reformatting and without contrast administration. CT scan performed according to ALARA principles (Automated exposure control used during the exam). One of the following dose-reduction techniques was utilized for this exam. Automated exposure control, adjustment of the mA and/or kV according to patient size, and use of iterative reconstruction. FINDINGS: There is significant subcutaneous fat stranding noted In the thigh and proximal aspect of the leg, predominantly involving the anterior aspect of the thigh. There is Associated focal skin thickening with an ill-defined soft tissue density area measuring 3 x 2 cm Noted in the anterior aspect of the thigh. The scanned bones show an intact cortex and the normal marrow cavity. No evidence of osteolytic or sclerotic osseous lesion. No destructive bony lesion. No evidence of osseous fractures. Intact knee joint with no evidence of subluxation or dislocation. Normal CT appearance of the femoral shaft, proximal tibia, and fibula as well as the patella. A multilocular cystic lesion is noted likely a fu cyst. IMPRESSION: 1. The anterior aspect of the mid-thigh skin/subcutaneous tissue inflammatory changes likely infection. The possibility of abscess formation/phlegmon is considered and requires intravenous contrast administration for confirmation. 2. Multilocular fu cyst. [facility] ER was called at [phone] at 3:41 AM RETAIL LOAN ORIGINATOR, 01/25/2024 and Pedro (nurse) was informed about important medical findings, Electronically Signed by: Shahid Rhoades MD. (01/25/2024 04:47:53 EDT)
[2024-01-25 05:03] LABS: Absolute Neutrophil Ct (ANC) 5.35 x10^3/uL (1.78-5.38); BASOPHIL % 0.4 % (0.2-1.2); Basophil (Absolute #) 0.03 x10^3/uL (0.01-0.08); Eosinophil % 3.2 % (0.8-7.0); Eosinophil (Absolute #) 0.25 x10^3/uL (0.04-0.54); Hematocrit 37.7 % (40.1-51.0); Hemoglobin 12.5 g/dL (13.7-17.5); IMMATURE GRAN # 0.02 x10^3u/L (0.001-0.031); IMMATURE GRAN % 0.3 % (0.001-0.429); Lymphocyte (Absolute #) 1.64 x10^3/uL (1.32-3.57); Lymphocytes % 20.8 % (21.8-53.1); Mean Corpuscular Hemoglobin 29.8 pg (25.7-32.2); Mean Corpuscular Hgb Concent. 33.2 g/dL (32.3-36.5); Mean Platelet Volume 9.5 fL (9.4-12.4); Monocytes % 7.6 % (5.3-12.2); Neutrophil % 67.7 % (34.0-67.9); Platelet Count 196 x10^3/uL (163-337); Red Blood Count 4.19 x10^6/uL (4.63-6.08); Red Cell Distribution Width 14.8 % (11.6-14.4); White Blood Count 7.9 x10^3/uL (4.23-9.07)
[2024-01-25 05:31] LABS: ALBUMIN 3.7 g/dL (3.5-5.0); ANION GAP 5.6 MEQ/L (5-15); BILIRUBIN,TOTAL 0.4 mg/dL (0.2-1.3); Calcium 8.4 mg/dL (8.4-10.2); Creatinine 1 0.77 mg/dL (0.66-1.25); EST GLOMERULAR FILTRATION RATE 122.8 ML/MIN; Potassium 3.1 mmol/L (3.5-5.1); Total Protein 6.5 g/dL (6.3-8.2)
[2024-01-25] MEDS: PIPERACILLIN/TAZOBACTAM 3.375 GM in Sodium Chloride 100ML MINI-BAG PLUS 100 ML IV SCH (06:21)
[2024-01-25] MEDS: MOTRIN 400 MG PO PRN (11:19)
[2024-01-25] MEDS: DUONEB 0.5-3 MG/3 ml Neb IH SCH (12:59)
--- NOTE | 2024-01-25 13:07 | XRAY ---
CLINICAL HISTORY: wheezing COMPARISON: July 11, 2007 TECHNIQUE: PA and lateral views FINDINGS: the lungs are clear. Heart and mediastinum are within normal limits. Bony thorax is unremarkable. IMPRESSION: no evidence of acute pulmonary disease. Electronically Signed by: Amber Locke MD. (01/25/2024 10:29:54 EDT)
[2024-01-25] MEDS: VANCOMYCIN 1.5 GRAM/300 ML BAG 1.5 GM/300 ML PIGGYBACK IV SCH (13:58)
[2024-01-25] MEDS: Nicoderm CQ 21 MG TOP SCH (18:09)
--- NOTE | 2024-01-25 18:24 | XRAY ---
CLINICAL HISTORY: possible abcess of thigh per CT w/o COMPARISON: 01/25/2024 LOWER EXTREMITY WITHOUT CONTRAST TECHNIQUE: Spiral axial continuous cuts were taken through the left femur and knee joint with multiplanar reformatting and with IV contrast administration. CT scan performed according to ALARA principles (Automated exposure control used during the exam). One of the following dose-reduction techniques was utilized for this exam. Automated exposure control, adjustment of the mA and/or kV according to patient size, and use of iterative reconstruction. FINDINGS: There is significant subcutaneous fat stranding noted In the thigh and proximal aspect of the leg, predominantly involving the anterior aspect of the thigh. There is Associated focal skin thickening with an ill-defined multilobulated small cystic collections measuring collectively 3 x 2 cm Noted in the anterior aspect of the thigh. The scanned bones show an intact cortex and the normal marrow cavity. No evidence of osteolytic or sclerotic osseous lesion. No destructive bony lesion. No evidence of osseous fractures. Intact knee joint with no evidence of subluxation or dislocation. Normal CT appearance of the femoral shaft, proximal tibia, and fibula as well as the patella. A multilocular cystic lesion is noted likely a fu cyst. IMPRESSION: 1. The anterior aspect of the mid-thigh skin/subcutaneous tissue inflammatory changes likely infection with multilobulated small cystic collections measuring collectively 3 x 2 cm Noted in the anterior aspect of the thigh. Suggestive of small abscess formations. 2. Multilocular fu cyst. 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 Electronically Signed by: Shahid Rhoades MD. (01/25/2024 18:20:45 EDT)
[2024-01-26 07:24] VITALS: BP 118/74; TEMP 97.8
[2024-01-26 08:17] VITALS: PULSE 77; RESP 16
[2024-01-26] MEDS ORDERED: Sensorcaine 0.25% 10 ML ONE (09:31)
[2024-01-26] MEDS ORDERED: Quelicin Fliptop 200 MG/10 ML ONE (10:37)
[2024-01-26] MEDS ORDERED: Versed 2 MG/2 ML Injection ONE (10:38)
[2024-01-26] MEDS ORDERED: SUBLIMAZE 100 MCG/2 ML ONE (10:38)
[2024-01-26] MEDS ORDERED: DIPRIVAN 200 MG/20 ML IV ONE (10:38)
[2024-01-26] MEDS ORDERED: Xylocaine-Mpf 2% 5 Ml Vial ONE (10:51)
[2024-01-26] MEDS ORDERED: ALBUTEROL/Proair Hfa MDI IH ONE (11:02)
[2024-01-26] MEDS ORDERED: DILAUDID 2 MG INJECTION ONE (11:07)
[2024-01-26] MEDS ORDERED: BRIDION 200MG/2ML IV ONE (11:08)
[2024-01-26] MEDS ORDERED: TORAdol 30 mg Injection ONE (11:13)
[2024-01-26] MEDS ORDERED: NORCO 5/325 MG PO PRN (12:29)
--- NOTE | 2024-01-26 13:01 | PCM.NOTE ---
Date and Time: 01/26/24 1254 Subjective Assessment: 01/26/24 Mr. Miller is a 33 year-old gentleman with active tobacco abuse and dependence and prior polysubstance abuse (IV cocaine and methaphetamines) who presented with cellulitis on 01/25/24. He admits to a spider bite on his left thigh three days ago which led to a pimple and then a boil with surrounding erythema. He came to the ED on 01/23 but left AMA with prescriptions to fill which he was not able to fill. Upon arrival 01/24, his laboratory data was unrevealing, and his left thigh had extensive erythema and induration with a large boil in the center which has been drained several times. Wound culture as done in ER. He was admitted with IV antibiotics. He is refusing any lab draws today and unable to check vancomycin level. Will stop this med as pharmacy explained we cannot continue without level and change to daptomycin. Today general surgery tooK pt to OR and did an I&D and packed it. His pain is well controlled and redness and edema improved. He is having mood swings and irritable with staff. He was cought smoking in the room and reported today he would burn down the hospital if they do not let him smoke. He was provided a nicotine patch and again advised not to smoke. He denies CP, SOB, abd. pain, N/V/D. - Review of Systems Constitutional: No Fever, No Chills Eyes: No Symptoms Ears, Nose, & Throat: No Symptoms Respiratory: No Cough, No Short Of Breath Cardiac: No Chest Pain, No Edema, No Syncope Abdominal/Gastrointestinal: No Abdominal Pain, No Nausea, No Vomiting, No Diarrhea Genitourinary Symptoms: No Dysuria Musculoskeletal: No Back Pain, No Neck Pain Skin: Skin Lesions (Abcess Left thigh), Other, No Rash Neurological: No Dizziness, No Focal Weakness, No Sensory Changes Psychological: No Symptoms, Emotional Lability Endocrine: No Symptoms Hematologic/Lymphatic: No Symptoms Immunological/Allergic: No Symptoms Objective Exam General Appearance: no apparent distress, alert Neurologic Exam: alert, oriented x 3, cooperative, normal mood/affect, nml cerebellar function, sensation nml, agitation, uncooperative, No motor deficits Skin Exam: normal color, warm, dry Wound Assessment: Skin/Wound Assessment Wound/Incision Assessment Start: 01/25/24 09:02 Text: Status: Active Freq: Protocol: Document 01/25/24 09:02 RB (Rec: 01/25/24 09:05 RB [id number]) Wound/Incision Assessment Right Upper Anterior Thigh Wound Assessment Shift Assessment Wound Type abcess Wound Stage Non Pressure Wound Drainage Amount Minimal Drainage Description Serosanguineous Drainage Odor None/Absent Surrounding Tissue Bright Red Primary Dressing mepilex Wound Photo Photo Taken Yes Date: 01/24/24 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 Eye Exam: PERRL, EOMI, eyes nml inspection Ears, Nose, Throat Exam: normal ENT inspection, pharynx normal, moist mucous membranes Neck Exam: normal inspection, non-tender, supple, full range of motion Respiratory Exam: normal breath sounds, lungs clear, No respiratory distress Cardiovascular Exam: regular rate/rhythm, normal heart sounds Gastrointestinal/Abdomen Exam: soft, No tenderness, No mass Extremity Exam: normal inspection, normal range of motion, inflammation (Left thigh), swelling, tenderness Back Exam: normal inspection, normal range of motion, No CVA tenderness, No vertebral tenderness Male Genitalia Exam: deferred Rectal Exam: deferred Objective Data Vital Signs: Vital Signs - 24 hr Temp Pulse Resp BP Pulse Ox 01/26/24 09:40 97.8 F 77 16 118/74 97 01/26/24 08:13 77 16 97 01/26/24 07:23 97.8 F 51 L 19 118/74 97 01/26/24 04:00 97.9 F 57 L 17 98/55 96 01/26/24 01:13 62 14 92 L 01/25/24 23:46 97.8 F 68 18 126/74 98 01/25/24 19:54 98.9 F 96 H 17 122/64 97 01/25/24 19:03 76 16 96 01/25/24 16:00 97.7 F 68 18 133/71 96 01/25/24 12:59 57 L 18 98 Pain Assessment - Last Documented Pain Intensity 0 Pain Scale Used 0-10 Pain Scale Intake and Output: Intake & Output 01/24/24 01/25/24 01/26/24 01/27/24 11:59 11:59 11:59 11:59 Intake Total 3422 Balance 3422 Weight 103.6 kg 103.6 kg Radiology Exams: Radiology Procedures Category Date Time Status CHEST 2 VIEWS (PA AND LAT) Stat Exams 01/25/24 09:17 Completed LOWER EXTREMITY WITH CONTRAST [CT] Stat Exams 01/25/24 07:33 Completed LOWER EXTREMITY WO CONTRAST [CT] Urgent Exams 01/25/24 03:51 Completed Assessment/Plan (1) Abscess of left thigh Current Visit: Yes Status: Acute Assessment & Plan: - I& D today with GS - IV antibiotics - pain control Code(s): L02.416 - CUTANEOUS ABSCESS OF LEFT LOWER LIMB (2) Cellulitis Current Visit: No Status: Acute Assessment & Plan: - IV antibiotics - CT scans reviwed with and w/o contrast Code(s): L03.90 - CELLULITIS, UNSPECIFIED (3) Noncompliance Current Visit: Yes Status: Acute Assessment & Plan: - smoking in room yesterday - Left AMA from ER day prior to admission - did not fill OP antibiotics Code(s): Z91.199 - PT NONCOMPL WITH OTHER MED TRTMT AND REGIMEN D/T UNSP REASON (4) Smoker unmotivated to quit Current Visit: Yes Status: Acute Assessment & Plan: - nicotine patch VTE: SCD's Next of KIN: Ramonita Miller [phone] D/c plan: 1-2 days Code status: Full Code(s): F17.200 - NICOTINE DEPENDENCE, UNSPECIFIED, UNCOMPLICATED
[2024-01-26] MEDS: Lactated Ringers 1,000 ML IV SCH (13:05)
--- NOTE | 2024-01-26 13:07 | PCM.DS ---
Discharge Summary Date of Admission: 01/25/24 01:50 Date of Discharge: 01/26/24 Admitting Physician: FARZANEH MCDERMOTT MD Consults: Consults on Case 01/25/24 09:16 Consult Surgery ROUTINE Primary Care Provider: NO FAMILY DOCTOR Allergies Allergies No Known Drug Allergies Allergy (Verified 01/24/24 23:09) Hospital Summary - Hospital Course Hospital Course: 01/26/24 Mr. Miller is a 33 year-old gentleman with active tobacco abuse and dependence and prior polysubstance abuse (IV cocaine and methaphetamines). He presented on 01/25/24 to ER with cellulitis of L thigh. He admits to a spider bite on his left thigh three days ago which led to a pimple and then a boil with surrounding erythema. He came to the ED on 01/23 but left AMA with prescriptions to fill which he was not able to fill. Upon arrival today, his laboratory data was unrevealing, and his left thigh has extensive erythema and induration with a large boil in the center which has been drained several times. He currently denies any fevers, chills, nausea, vomiting, diarrhea, syncope, presyncope, visual changes, orthopnea, PND, odynophagia, dysphagia, chest pain, shortness of breath, belly pain, dysuria, hematuria, melena, hematochezia, or neurological changes. All other systems were reviewed and were negative. - Vitals & Intake/Output Vital Signs: Vital Signs Temperature 97.8 F 01/26/24 09:40 Pulse Rate 77 01/26/24 09:40 Respiratory Rate 16 01/26/24 09:40 Blood Pressure 118/74 01/26/24 09:40 O2 Sat by Pulse Oximetry 97 01/26/24 09:40 Intake & Output: Intake & Output 01/24/24 01/25/24 01/26/24 01/27/24 11:59 11:59 11:59 11:59 Intake Total 3422 Balance 3422 Weight 103.6 kg 103.6 kg - Lab Result Diagrams: 01/25/24 04:39 01/25/24 04:39 Micro Results-Entire Visit: Microbiology 01/24/24 23:22 Wound Culture - Preliminary Abcess GRAM POSITIVE ID AND SENSITIVITY PENDING - Radiology Exams Ordered Rad Exams-Entire Visit: Radiology Procedures Category Date Time Status CHEST 2 VIEWS (PA AND LAT) Stat Exams 01/25/24 09:17 Completed LOWER EXTREMITY WITH CONTRAST [CT] Stat Exams 01/25/24 07:33 Completed LOWER EXTREMITY WO CONTRAST [CT] Urgent Exams 01/25/24 03:51 Completed - Procedures and Test Procedures and Tests throughout Hospitalization: Therapy Orders & Screens 01/25/24 05:30 PT Screen per Nursing Assess ONCE Comment: Protocol Order Physician Instructions: Greater than 3 points order PT Admission Screenin Reason For Exam: Triggered on Admission Diagnosis: abscess, cellulitis of left thigh Open Wound/Cellutlitis/Pressure Ulcers: Yes Acute Fx/ORIF/Change in wt bearing status: No Severe MUSCULOSKELETAL pain: No ADL Dysfunction: No Acute CVA w/Hemiparesis/Hemiplegia: No Decreased Functional Mobility/Strength: No Sprain/Strain: No Acute Post-op Mobility Dysfunction: No Total Points: 5 Smoking Cessation Education ONCE Comment: Diagnosis: abscess, cellulitis of left thigh Smoking Status: Current every day smoker How long have you smoked: 10 YEARS Have you smoked in the past 12 months: Yes Approximately how many cigarettes per day: 1 pack Do you dip or chew tobacco: No 01/25/24 13:02 Respiratory Therapy Assessment DAILY Comment: Diagnosis: abscess, cellulitis of left thigh Discharge Exam General Appearance: no apparent distress, alert Neurologic Exam: alert, oriented x 3, cooperative, normal mood/affect, nml cerebellar function, sensation nml, No motor deficits Eye Exam: PERRL, EOMI, eyes nml inspection Ears, Nose, Throat Exam: normal ENT inspection, pharynx normal, moist mucous membranes Neck Exam: normal inspection, non-tender, supple, full range of motion Respiratory Exam: normal breath sounds, lungs clear, No respiratory distress Cardiovascular Exam: regular rate/rhythm, normal heart sounds Gastrointestinal/Abdomen Exam: soft, No tenderness, No mass Male Genitalia Exam: deferred Rectal Exam: deferred Back Exam: normal inspection, normal range of motion, No CVA tenderness, No vertebral tenderness Extremity Exam: normal inspection, normal range of motion, inflammation, swellin g (Left thigh) Skin Exam: normal color, warm, dry Wound Assessment: Skin/Wound Assessment Wound/Incision Assessment Start: 01/25/24 09:02 Text: Status: Active Freq: Protocol: Document 01/25/24 09:02 RB (Rec: 01/25/24 09:05 RB [id number]) Wound/Incision Assessment Right Upper Anterior Thigh Wound Assessment Shift Assessment Wound Type abcess Wound Stage Non Pressure Wound Drainage Amount Minimal Drainage Description Serosanguineous Drainage Odor None/Absent Surrounding Tissue Bright Red Primary Dressing mepilex Wound Photo Photo Taken Yes Date: 01/24/24 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 The anterior aspect of the mid-thigh skin/subcutaneous tissue inflammatory changes likely infection. The possibility of abscess formation/phlegmon is considered and requires intravenous contrast administration for confirmation. 2. Multilocular fu cyst. - CT with contrast 01/24 IMPRESSION: 1. The anterior aspect of the mid-thigh skin/subcutaneous tissue inflammatory changes likely infection with multilobulated small cystic collections measuring collectively 3 x 2 cm Noted in the anterior aspect of the thigh. Suggestive of small abscess formations. 2. Multilocular fu cyst. - IV antibiotics - PO pain control - narcotic pain medication Code(s): L02.416 - CUTANEOUS ABSCESS OF LEFT LOWER LIMB (2) Cellulitis Current Visit: No Status: Acute Assessment & Plan: - IV antibiotics - surgical consult - WBC WNL Code(s): L03.90 - CELLULITIS, UNSPECIFIED (3) Smoker unmotivated to quit Current Visit: Yes Status: Acute Assessment & Plan: - smoking in room yesterday- explained no smoking facilty - nicotine patch - Advised cessation Code(s): F17.200 - NICOTINE DEPENDENCE, UNSPECIFIED, UNCOMPLICATED (4) Noncompliance Current Visit: Yes Status: Acute Assessment & Plan: - refused labs this morning after lab unable to obtain after 1 stick Code(s): Z91.199 - PT NONCOMPL WITH OTHER MED TRTMT AND REGIMEN D/T UNSP REASON - Discharge Disposition: Home, Self-Care Condition: Stable Prescriptions: No Action Clindamycin HCl 150 mg [Cleocin 150 mg Capsule] 2 cap PO QID 7 Days #56 cap Cephalexin Mh 500 mg [Keflex 500 mg] 500 mg PO TID 7 Days #21 cap Follow up with: DOCTOR,NO FAMILY [Primary Care Provider] -
[2024-01-26] MEDS: Nicoderm CQ 21 MG TOP SCH (15:02)
[2024-01-26] MEDS: TROUGH DRUG LEVELS IJ ONE (15:44)
[2024-01-26] MEDS ORDERED: DAPTOmycin 600 MG in Sodium Chloride Flush 30 ML*** 12 ML IV SCH (16:00)
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
[2024-01-27 10:10] VITALS: O2SAT 98
--- NOTE | 2024-01-28 08:42 | OP ---
SURGERY DATE/TIME: 01/26/2024 7493 - [id number] PREOPERATIVE DIAGNOSIS: Abscess, left thigh. POSTOPERATIVE DIAGNOSIS: Abscess, left thigh. PROCEDURE: Incision, drainage, and vacuum. SURGEON: Conner Ramirez MD ANESTHESIA: General. COMPLICATIONS: None. CONDITION: Stable. DESCRIPTION OF PROCEDURE AND FINDINGS: Patient was taken to surgery. Time-out was performed, general anesthetic. Left thigh, it was draining a little spontaneously but needed better drainage. It was opened to the left and right in a transverse direction, and the pus just poured out, about 1 ounce of pus. It was cultured. It was irrigated generously. It was closed with inverting 3-0 Vicryl stitches.
== END 2024-01-26 16:18 | disposition left against medical advice (07) ==
LOC: ED 22:56 → MED SURG 01-25 01:50
PROVIDERS: ADMIT Internal Medicine Critical Care Medicine; ATTEND Internal Medicine Critical Care Medicine
DX: L02.416 Cutaneous abscess of left lower limb (principal); L03.116 Cellulitis of left lower limb; Z59.811 Housing instability, housed, with risk of homelessness; F17.200 Nicotine dependence, unspecified, uncomplicated; F19.90 Other psychoactive substance use, unspecified, uncomplicated; Z91.199 Patient's noncompliance with other medical treatment and regimen due to unspecified reason; Z79.899 Other long term (current) drug therapy
CPT/HCPCS: 36000; 36415; 71046; 73700; 73701; 80053; 82550; 83605; 85025; 87070; 87077; 87186; 94640; 94760; 99285; G0378; J0330; J1170; J1885; J2250; J2704; J3010; Q3014; A9270-GY; J3370